=== PATIENT | female | born 2000 | race Caucasian/White ===

== ENCOUNTER 2024-02-12 10:26 | Inpatient (IN) | payer OTHER ==
[~2024-02-12] VITALS: Ht 160 cm; Wt 90.7 kg
[2024-02-12] MEDS ORDERED: METHYLERGONOVINE 0.2 MG/ML AMP IM PRN (10:45)
[2024-02-12 11:26] LABS: BASOPHILS # (AUTO) 0.1 K/uL (0.00-0.22); BASOPHILS % (AUTO) 0.9 % (0.0-2.0); EOSINOPHILS # (AUTO) 0.2 K/uL (0-0.4); EOSINOPHILS % (AUTO) 1.6 % (0.0-4.0); HEMOGLOBIN 11.6 g/dL (12.0-16.0); LYMPHOCYTES # (AUTO) 2.9 K/uL (2.5-16.5); LYMPHOCYTES % (AUTO) 27.7 % (20.5-51.1); MEAN CORPUSCULAR HEMOGLOBIN 31 pg (27-31); MEAN CORPUSCULAR HGB CONC 35 g/dL (33-37); MEAN CORPUSCULAR VOLUME 87.8 fL (80-94); MONOCYTES # (AUTO) 0.5 K/uL (0.8-1.0); MONOCYTES % (AUTO) 4.6 % (1.7-9.3); NEUTROPHILS # (AUTO) 6.7 K/uL (1.8-7.7); NEUTROPHILS % (AUTO) 65.2 % (42.2-75.2); PLATELET COUNT (AUTO) 243 K/uL (140-450); RED BLOOD CELL COUNT(AUTO) 3.76 MIL/uL (4.20-5.40); RED CELL DISTRIBUTION WIDTH 14.1 % (11.6-13.7); WHITE BLOOD COUNT (AUTO) 10.3 K/uL (4.8-10.8)
[2024-02-12 11:31] LABS: BILIRUBIN,URINE 1+ (NEGATIVE); BLOOD, URINE NEGATIVE (NEGATIVE); COLOR,URINE YELLOW (YELLOW); LEUKOCYTE ESTERASE ,URINE TRACE (NEGATIVE); NITRITE, URINE NEGATIVE (NEGATIVE); PH,URINE 6.5 (5.0-9.0); PROTEIN,URINE TRACE (NEGATIVE); UGLUCOSE NEGATIVE (NEGATIVE); UROBILINOGEN,URINE 0.2 EU/dL (0.2 - 1)
[2024-02-12 11:39] LABS: ICTOTEST NEGATIVE (NEGATIVE)
[2024-02-12 11:42] LABS: SQUAMOUS EPITHELIAL CELL,UR 4-10 (MOD) /LPF (0-3 (FEW))
[2024-02-12 11:43] LABS: APPEARANCE,URINE SLIGHTLY HAZY (CLEAR); BACTERIA,URINE FEW /HPF (None Seen); RBC,URINE 0-5 /HPF (0-5); WBC,URINE 0-5 /HPF (0-5)
[2024-02-12 11:48] LABS: INR 0.86 (0.8-1.2); PARTIAL THROMBOPLASTIN TIME 23.4 secs (22-35.6); PROTHROMBIN TIME 9.1 secs (10.8-13.4)
[2024-02-12] MEDS ORDERED: MISOPROSTOL 25 MCG TAB VG SCH (12:00)
[2024-02-12] MEDS: LACTATED RINGERS 1,000 ML IV SCH (12:20)
[2024-02-12 12:28] LABS: ANION GAP 16.4 (8-16); CALCIUM 9.4 mg/dL (8.5-10.1); CARBON DIOXIDE 20.4 mmol/L (21-32); CREATININE 0.7 mg/dL (0.6-1.3); POTASSIUM 3.8 mmol/L (3.5-5.1)
[2024-02-12 12:34] LABS: ALBUMIN 2.7 g/dL (3.4-5.0); TOTAL BILIRUBIN 0.4 mg/dL (0.0-1.0); TOTAL PROTEIN, SERUM 6.2 g/dL (6.4-8.2)
[2024-02-12] MEDS: MISOPROSTOL 25 MCG TAB VG PRN (12:38)
[2024-02-12] MEDS ORDERED: ONDANSETRON 4 MG/2 ML VIAL IVP PRN (15:10)
[2024-02-12] MEDS ORDERED: MORPHINE SULFATE 10 MG/ML VIAL IVP PRN (15:10)
[2024-02-12] MEDS ORDERED: PRETAB PO (15:23)
[2024-02-12 19:13] LABS: URINE TOTAL PROTEIN 2.9 mg/dL (0-12)
[2024-02-12 19:15] LABS: CREATININE,URINE < 30 mg/dL (30-125); URINE TPRO CREAT RATIO 0.1 (0-0.20)
[2024-02-12] MEDS ORDERED: PANTOPRAZOLE 40 MG TABEC PO ONE (22:22)
[2024-02-13] MEDS ORDERED: AMPICILLIN 2,000 MG VIAL ONE (10:30)
[2024-02-13] MEDS: AMPICILLIN 2,000 MG in NACL 0.9% 100 ML IV SCH (10:55)
[2024-02-13] MEDS ORDERED: ROPIVACAINE 0.2%/NS PREMIX 200 ML EPI ONE (11:57)
[2024-02-13] MEDS: OXYTOCIN/0.9 % SODIUM CHLORIDE 500 ML IV SCH (12:59)
[2024-02-13] MEDS: AMPICILLIN 1,000 MG in NACL 0.9% 50 ML IV SCH (15:03)
[2024-02-13] MEDS ORDERED: AMPICILLIN 1,000 MG VIAL ONE (18:18)
[2024-02-13] MEDS: AMPICILLIN 1,000 MG VIAL ONE (18:50)
[2024-02-13] MEDS ORDERED: MEDS-TO-BEDS MC SCH (21:00)
[2024-02-14] MEDS ORDERED: MEASLES, MUMPS, AND RUBELLA 1 VIAL SQVAC ONE (00:15)
[2024-02-14] MEDS ORDERED: METHYLERGONOVINE 0.2 MG TAB PO PRN (00:15)
[2024-02-14] MEDS ORDERED: METHYLERGONOVINE 0.2 MG/ML AMP IM PRN (00:15)
[2024-02-14] MEDS ORDERED: OXYTOCIN 10 UNITS/ML VIAL IM PRN (00:15)
[2024-02-14] MEDS ORDERED: BENZOCAINE/MENTHOL 20%-0.5% 60 GM CAN TP PRN (00:15)
[2024-02-14 07:10] LABS: BASOPHILS # (AUTO) 0.1 K/uL (0.00-0.22); BASOPHILS % (AUTO) 0.6 % (0.0-2.0); EOSINOPHILS % (AUTO) 0.2 % (0.0-4.0); HEMATOCRIT 30.6 % (36-48); HEMOGLOBIN 10.4 g/dL (12.0-16.0); LYMPHOCYTES # (AUTO) 2.6 K/uL (2.5-16.5); LYMPHOCYTES % (AUTO) 10.9 % (20.5-51.1); MEAN CORPUSCULAR HEMOGLOBIN 30 pg (27-31); MEAN CORPUSCULAR HGB CONC 34 g/dL (33-37); MEAN CORPUSCULAR VOLUME 87.8 fL (80-94); MONOCYTES # (AUTO) 1.2 K/uL (0.8-1.0); MONOCYTES % (AUTO) 5.1 % (1.7-9.3); NEUTROPHILS # (AUTO) 20.1 K/uL (1.8-7.7); NEUTROPHILS % (AUTO) 83.2 % (42.2-75.2); PLATELET COUNT (AUTO) 226 K/uL (140-450); RED BLOOD CELL COUNT(AUTO) 3.48 MIL/uL (4.20-5.40); RED CELL DISTRIBUTION WIDTH 14.6 % (11.6-13.7); WHITE BLOOD COUNT (AUTO) 24.1 K/uL (4.8-10.8)
[2024-02-14 11:06] LABS: ALBUMIN 2.1 g/dL (3.4-5.0); ANION GAP 17.3 (8-16); CALCIUM 8.7 mg/dL (8.5-10.1); CARBON DIOXIDE 20.5 mmol/L (21-32); CREATININE 0.8 mg/dL (0.6-1.3); POTASSIUM 3.8 mmol/L (3.5-5.1); TOTAL BILIRUBIN 0.7 mg/dL (0.0-1.0); TOTAL PROTEIN, SERUM 5.4 g/dL (6.4-8.2)
[2024-02-14] MEDS: IBUPROFEN 800 MG TAB PO PRN (13:41)
[2024-02-14] MEDS: bisacodyL 5 MG TABEC PO SCH (20:33)
== END 2024-02-15 16:15 | disposition home or self-care (01) | DRG 560 ==
LOC: MLD 10:26 → MFCC 02-14 03:00
PROVIDERS: ADMIT Obstetrics & Gynecology; ATTEND Obstetrics & Gynecology
PROC: 10E0XZZ Delivery of Products of Conception, External Approach (ICD-10-PCS; principal; 2024-02-13)
PROC: 10907ZC Drainage of Amniotic Fluid, Therapeutic from Products of Conception, Via Natural or Artificial Opening (ICD-10-PCS; 2024-02-13)
PROC: 3E033VJ Introduction of Other Hormone into Peripheral Vein, Percutaneous Approach (ICD-10-PCS; 2024-02-13)
PROC: 3E0DXGC Introduction of Other Therapeutic Substance into Mouth and Pharynx, External Approach (ICD-10-PCS; 2024-02-13)
PROC: 3E0R3BZ Introduction of Anesthetic Agent into Spinal Canal, Percutaneous Approach (ICD-10-PCS; 2024-02-13)
PROC: 00HU33Z Insertion of Infusion Device into Spinal Canal, Percutaneous Approach (ICD-10-PCS; 2024-02-13)
DX: O48.0 Post-term pregnancy (principal); Z37.0 Single live birth; E43 Unspecified severe protein-calorie malnutrition; O41.03X0 Oligohydramnios, third trimester, not applicable or unspecified; O99.12 Other diseases of the blood and blood-forming organs and certain disorders involving the immune mechanism complicating childbirth; Z3A.40 40 weeks gestation of pregnancy; O77.0 Labor and delivery complicated by meconium in amniotic fluid; O25.2 Malnutrition in childbirth; O99.02 Anemia complicating childbirth; D72.829 Elevated white blood cell count, unspecified
CPT/HCPCS: 36415; 51702; 59409; 76815; 80053; 81001; 82570; 84550; 85025; 85384; 85610; 85730; 86592; 86886; 86900; 86901; 87653-90; J0290; J2210; J2590; J2795; Q0092